=== PATIENT | female | born 1940 | race Caucasian/White ===

== ENCOUNTER 2025-05-23 09:23 | Outpatient (CLI) | payer OTHER | END 2025-05-23 09:24 | disposition home or self-care (01) | LOC: CSHRAD 09:23 | PROVIDERS: ATTEND Nurse Practitioner Family | DX: J96.01 Acute respiratory failure with hypoxia (principal); J94.8 Other specified pleural conditions; R91.8 Other nonspecific abnormal finding of lung field | CPT/HCPCS: 71046 ==